=== PATIENT | male | born 1985 | race Caucasian/White ===

== ENCOUNTER → 2017-10-11 | Outpatient (CLI) | payer BC ==
[~2017-10-11] MED LIST: IBU-8800 MG PO; MOTRIN800 MG PO; PEPCID20 MG PO; PRILOSEC20 MG PO; VIBRAMYCIN100 MG PO; ZOFRAN ODT4 MG SL
== END | disposition home or self-care (01) ==
LOC: US 16:17
DX: M79.89 Other specified soft tissue disorders (principal)

== ENCOUNTER → 2019-08-23 | Outpatient (CLI) | payer BC ==
[2019-08-23 09:31] LABS: CHOLESTEROL 202 mg/dL (<200); HDL CHOLESTEROL 42 mg/dl (40-60); LDL CHOLESTEROL 145 mg/dL (9-159); TRIGLYCERIDES 76 mg/dl (<150); VLDL CHOLESTEROL 15 mg/dL (6-40)
== END | disposition home or self-care (01) ==
LOC: LAB 08:40
PROVIDERS: Nurse Practitioner Family
DX: Z13.220 Encounter for screening for lipoid disorders (principal); J01.01 Acute recurrent maxillary sinusitis

== ENCOUNTER → 2022-12-14 | Outpatient (CLI) | payer OTHER | END | disposition home or self-care (01) | LOC: RAD 13:26 | PROVIDERS: ATTEND Nurse Practitioner Family | DX: M25.511 Pain in right shoulder (principal) ==

== ENCOUNTER → 2024-08-14 | Outpatient (CLI) | payer OTHER | END | disposition home or self-care (01) | LOC: RAD 11:38 | PROVIDERS: ATTEND Nurse Practitioner Family | DX: M25.521 Pain in right elbow (principal) ==